=== PATIENT | female | born 1960 | race Caucasian/White ===

== ENCOUNTER 2019-01-11 04:29 | Emergency (ER) | payer BC, OTHER ==
[2019-01-11] MEDS ORDERED: Sodium Chloride 0.9% 10 ML Syringe FLUSH PRN (04:46)
[2019-01-11] MEDS ORDERED: Ketorolac 30 MG/ML SDV IVPUSH ONE (04:48)
[2019-01-11] MEDS ORDERED: Ondansetron 4 MG/2 ML SDV IVPUSH ONE (04:48)
[2019-01-11] MEDS ORDERED: HYDROmorphone 1 MG/ML Syringe IVPUSH ONE (04:48)
--- NOTE | 2019-01-11 04:53 | EDM.PDOC ---
ED HPI GENERAL MEDICAL PROBLEM - General Chief Complaint: Genitourinary Problem Stated Complaint: PAIN ON RIGHT SIDE VOMMITTING Time Seen by Provider: 01/11/19 04:44 Source of Information: Reports: Patient, Family History Limitations: Reports: No Limitations - History of Present Illness INITIAL COMMENTS - FREE TEXT/NARRATIVE: The patient presents with right flank to right lower abdomen pain. This started at 2am and woke her up from sleeping. She also has nausea and vomiting. She has chills but no fever. She has no chest pain or shortness of breath. She has a history of kidney stones and she is worried this maybe another one. She has no dysuria or hematuria. Onset: Sudden Duration: Hour(s): Location: Reports: Abdomen, Back (right flank) Quality: Reports: Sharp Severity: Severe Improves with: Reports: None Worsens with: Reports: None Associated Symptoms: Reports: Fever/Chills, Nausea/Vomiting. Denies: Chest Pain , Cough, Headaches, Shortness of Breath - Related Data Allergies Allergy/AdvReac Type Severity Reaction Status Date / Time No Known Allergies Allergy Verified 01/11/19 04:39 Home Meds: Home Meds Azithromycin [Zithromax] 250 mg PO DAILY 01/11/19 [History] Estrogen,Con/M-Progest Acet [Prempro 0.3 MG-1.5 MG] 1 tab PO DAILY 01/11/19 [ History] Hydrocodone/Acetaminophen [Hydrocodon-Acetaminophen 5-325] 1 - 2 each PO Q6HR PRN #20 tablet 01/11/19 [Rx] Sertraline [Zoloft] 100 mg PO BEDTIME 01/11/19 [History] Tamsulosin HCl [Flomax] 0.4 mg PO DAILY #7 cap.er.24h 01/11/19 [Rx] Past Medical History HEENT History: Reports: Impaired Vision Genitourinary History: Reports: Renal Calculus Musculoskeletal History: Reports: Arthritis, Back Pain, Chronic - Past Surgical History Female Surgical History: Reports: Lithotripsy/ESWL Social & Family History - Tobacco Use Smoking Status *Q: Never Smoker - Caffeine Use Caffeine Use: Reports: Coffee - Recreational Drug Use Recreational Drug Use: No ED ROS GENERAL - Review of Systems Review Of Systems: See Below Constitutional: Reports: Chills. Denies: Fever HEENT: Reports: No Symptoms Respiratory: Reports: No Symptoms Cardiovascular: Reports: No Symptoms Endocrine: Reports: No Symptoms GI/Abdominal: Reports: Abdominal Pain, Nausea, Vomiting. Denies: Diarrhea : Reports: Flank Pain (right). Denies: Dysuria, Hematuria Musculoskeletal: Reports: Back Pain (right flank) ED EXAM, RENAL/ - Physical Exam Exam: See Below Exam Limited By: No Limitations General Appearance: Alert, Mild Distress Ears: Normal External Exam Nose: Normal Inspection Head: Atraumatic, Normocephalic Neck: Normal Inspection Respiratory/Chest: No Respiratory Distress, Lungs Clear, Normal Breath Sounds Cardiovascular: Regular Rate, Rhythm, No Edema, No Murmur GI/Abdominal: Soft, Non-Tender, No Organomegaly, No Mass Course - Vital Signs Last Recorded V/S: Last Vital Signs Temp 97.5 F 01/11/19 04:36 Pulse 79 01/11/19 04:36 Resp 18 01/11/19 04:36 BP 163/94 H 01/11/19 04:36 Pulse Ox 100 01/11/19 04:36 - Orders/Labs/Meds Orders: Active Orders 24 hr Category Date Time Status Peripheral IV Care [RC] . DIRECTED Care 01/11/19 04:47 Active Abdomen Pelvis wo Cont [CT] Stat Exams 01/11/19 04:46 Taken Sodium Chloride 0.9% [Normal Saline] 1,000 ml Med 01/11/19 05:00 Active IV ASDIRECTED Sodium Chloride 0.9% [Saline Flush] Med 01/11/19 04:46 Active 10 ml FLUSH ASDIRECTED PRN ED Antiemetic Medication Reflex [OM.PC] Stat Oth 01/11/19 04:47 Ordered Peripheral IV Insertion Adult [OM.PC] Stat Oth 01/11/19 04:46 Ordered Medication Orders Sodium Chloride (Normal Saline) 1,000 mls @ 125 mls/hr IV ASDIRECTED LEONARD Last Admin: 01/11/19 04:57 Dose: 125 mls/hr Sodium Chloride (Saline Flush) 10 ml FLUSH ASDIRECTED PRN PRN Reason: Keep Vein Open Last Admin: 01/11/19 04:57 Dose: 10 ml Labs: Laboratory Tests 01/11/19 01/11/19 01/11/19 Range/Units 04:42 04:42 05:44 WBC 11.57 H (3.98-10.04) K/mm3 RBC 4.96 (3.98-5.22) M/mm3 Hgb 11.1 L (11.2-15.7) gm/L Hct 37.2 (34.1-44.9) % MCV 75.0 L (79.4-94.8) fl MCH 22.4 L (25.6-32.2) pg MCHC 29.8 L (32.2-35.5) g/dl RDW Std Deviation 48.4 H (36.4-46.3) fL Plt Count 399 H (182-369) K/mm3 MPV 10.3 (9.4-12.3) fl Neut % (Auto) 66.6 (34.0-71.1) % Lymph % (Auto) 21.5 (19.3-51.7) % [place] % (Auto) 8.5 (4.7-12.5) % Eos % (Auto) 2.8 (0.7-5.8) Baso % (Auto) 0.3 (0.1-1.2) % Neut # (Auto) 7.71 H (1.56-6.13) K/mm3 Lymph # (Auto) 2.49 (1.18-3.74) K/mm3 [place] # (Auto) 0.98 H (0.24-0.36) K/mm3 Eos # (Auto) 0.32 (0.04-0.36) K/mm3 Baso # (Auto) 0.03 (0.01-0.08) K/mm3 Manual Slide Review Normal smear Sodium 140 (136-145) mEq/L Potassium 3.0 L (3.5-5.1) mEq/L Chloride 103 (98-107) mEq/L Carbon Dioxide 26 (21-32) mEq/L Anion Gap 14.0 (5-15) BUN 12 (7-18) mg/dL Creatinine 0.9 (0.55-1.02) mg/dL Est Cr Clr Drug Dosing 62.06 mL/min Estimated GFR (MDRD) > 60 (>60) mL/min BUN/Creatinine Ratio 13.3 L (14-18) Glucose 115 H (74-106) mg/dL Calcium 9.2 (8.5-10.1) mg/dL Total Bilirubin 0.3 (0.2-1.0) mg/dL AST 24 (15-37) U/L ALT 29 (14-59) U/L Alkaline Phosphatase 191 H (46-116) U/L Total Protein 8.0 (6.4-8.2) g/dl Albumin 3.7 (3.4-5.0) g/dl Globulin 4.3 gm/dL Albumin/Globulin Ratio 0.9 L (1-2) Lipase 147 (73-393) U/L Urine Color Yellow (Yellow) Urine Appearance Cloudy H (Clear) Urine pH 6.0 (5.0-8.0) Ur Specific [place] > or = 1.030 (1.005-1.030) Urine Protein Negative (Negative) Urine Glucose (UA) Negative (Negative) Urine Ketones Negative (Negative) Urine Occult Blood Negative (Negative) Urine Nitrite Negative (Negative) Urine Bilirubin Negative (Negative) Urine Urobilinogen 0.2 (0.2-1.0) Ur Leukocyte Esterase 1+ H (Negative) Urine RBC 0-5 (0-5) /hpf Urine WBC 10-20 H (0-5) /hpf Ur Epithelial Cells 10-20 H (0-5) /hpf Urine Bacteria Few (FEW) /hpf Urine Mucus Few (FEW) /hpf Meds: Medications Generic Name Dose Route Start Last Admin Trade Name Freq PRN Reason Stop Dose Admin Sodium Chloride 1,000 mls @ 125 mls/hr 01/11/19 05:00 01/11/19 04:57 Normal Saline IV 125 mls/hr ASDIRECTED LEONARD Administration Sodium Chloride 10 ml 01/11/19 04:46 01/11/19 04:57 Saline Flush FLUSH 10 ml ASDIRECTED PRN Administration Keep Vein Open Discontinued Medications Generic Name Dose Route Start Last Admin Trade Name Freq PRN Reason Stop Dose Admin Hydromorphone HCl 0.5 mg 01/11/19 04:48 01/11/19 04:55 Dilaudid IVPUSH 01/11/19 04:49 0.5 mg ONETIME ONE Administration Ketorolac Tromethamine 30 mg 01/11/19 04:48 01/11/19 04:56 Toradol IVPUSH 01/11/19 04:49 30 mg ONETIME ONE Administration Ondansetron HCl 4 mg 01/11/19 04:48 01/11/19 04:57 Zofran IVPUSH 01/11/19 04:49 4 mg ONETIME ONE Administration Tamsulosin HCl 0.4 mg 01/11/19 05:51 Flomax PO 01/11/19 05:52 ONETIME ONE - Re-Assessments/Exams Free Text/Narrative Re-Assessment/Exam: 01/11/19 04:52 I ordered an IV NS at 125ml/hr, zofran 4mg IV, toradol 30mg IV, dilaudid 0.5mg IV, labs, UA and a CT of her abdomen and pelvis without contrast. 01/11/19 05:47 Her WBC was elevated at 11.57. Her Hgb was a little low at 11.1. Her platelets were a little elevated at 399. Her K was low at 3. Her Alk Phos was elevated at 191. Her lipase was normal. Her CT shows hydronephrosis of the right kidney as well as hydroureter secondary to a 5mm stone at the right ureterovescical junction. Bilateral renal calculi. The largest stone is the right kidney involves the upper pole measuring 4mm while the largest stone in the left kidney measures 4mm involving the lower pole. She feels much better. She thinks she can urinate now. I will get a sample and I will give her a dose of flomax now. 01/11/19 06:39 Her UA shows no UTI. The sample appears contaminated. I will discharge her on some hydrocodone and flomax and have her follow up with Dr Jain. Departure - Departure Time of Disposition: 06:45 Disposition: Home, Self-Care 01 Condition: Good Clinical Impression: Kidney stone, Ureteral colic, Ureteral calculus, right - Discharge Information *PRESCRIPTION DRUG MONITORING PROGRAM REVIEWED*: No *COPY OF PRESCRIPTION DRUG MONITORING REPORT IN PATIENT LISA: No Prescriptions: Hydrocodone/Acetaminophen [Hydrocodon-Acetaminophen 5-325] 1 - 2 each PO Q6HR PRN #20 tablet PRN Reason: Pain Tamsulosin HCl [Flomax] 0.4 mg PO DAILY #7 cap.er.24h Referrals: Lani Van PA-C [Primary Care Provider] - Lucas Jain MD [Physician] - 1 Week Forms: ED Department Discharge Additional Instructions: Drink plenty of fluids. Take the flomax daily. Take motrin or aleve for pain. If that does not work, take hydrocodone for pain. Follow up with Dr Jain and please return if you are worse. - My Orders Last 24 Hours: My Active Orders 01/11/19 04:46 Abdomen Pelvis wo Cont [CT] Stat Sodium Chloride 0.9% [Saline Flush] 10 ml FLUSH ASDIRECTED PRN Peripheral IV Insertion Adult [OM.PC] Stat 01/11/19 04:47 Peripheral IV Care [RC] . DIRECTED ED Antiemetic Medication Reflex [OM.PC] Stat 01/11/19 05:00 Sodium Chloride 0.9% [Normal Saline] 1,000 ml IV ASDIRECTED - Assessment/Plan Last 24 Hours: My Active Orders 01/11/19 04:46 Abdomen Pelvis wo Cont [CT] Stat Sodium Chloride 0.9% [Saline Flush] 10 ml FLUSH ASDIRECTED PRN Peripheral IV Insertion Adult [OM.PC] Stat 01/11/19 04:47 Peripheral IV Care [RC] . DIRECTED ED Antiemetic Medication Reflex [OM.PC] Stat 01/11/19 05:00 Sodium Chloride 0.9% [Normal Saline] 1,000 ml IV ASDIRECTED
[2019-01-11] MEDS ORDERED: Sodium Chloride 0.9% 1,000 ML IV SCH (05:00)
[2019-01-11] MEDS ORDERED: Tamsulosin 0.4 MG Cap.ER PO ONE (05:51)
--- NOTE | 2019-01-11 07:33 | CT ---
CT abdomen and pelvis Technique: Multiple axial sections were obtained from above the dome of the diaphragm inferiorly through the pubic symphysis. Intravenous and oral contrast not utilized. Study has been performed as a ureteral stone protocol. Comparison: No prior abdominal imaging. Findings: Several nonobstructing calculi seen within the right kidney with largest measuring about 4.7 mm. Several nonobstructing stones noted within the left kidney with largest measuring 2.6 mm. Dilated right ureter is seen down to the UVJ. This finding is caused by an obstructing stone located at the UVJ measuring 3.8 mm. Calcified granuloma is identified within the right lung base. Liver shows diffuse fatty infiltration. Spleen appears within normal limits. Adrenal glands show no nodule. Pancreas is normal. Gallbladder contains no calcified gallstones. Aorta shows no aneurysm. No retroperitoneal adenopathy or mesenteric abnormalities are seen. Appendix is seen and is normal. No pelvic mass or adenopathy is seen. No free fluid is seen. Small subserosal fibroid containing calcification is noted within the uterus within the left fundus measuring 1.1 cm. Bone window settings were reviewed which show mild scattered degenerative change and previous surgery at L3 and L4 without acute osseous abnormality being seen. Impression: 1. Bilateral nonobstructing renal calculi. 2. Dilated right ureter caused by an obstructing 3.8 millimeter stone located at the right UVJ. 3. Other incidental findings as noted above. Diagnostic code #3 I agree with preliminary report from [facility], finalized on 01/11/19, 6:28 AM Central Time
== END 2019-01-11 06:50 | disposition home or self-care (01) ==
LOC: JD.ED 04:29
DX: N20.2 Calculus of kidney with calculus of ureter (principal); Z79.899 Other long term (current) drug therapy
CPT/HCPCS: 36415; 74176; 80053; 81001; 83690; 85025; 96361; 96374; 96375; 99284; A9270; J1170; J1885; J2405; J7040